=== PATIENT | female | born 1995 | race Caucasian/White ===

== ENCOUNTER 2021-02-19 05:39 | Inpatient (IN) | payer OTHER ==
[~2021-02-19] VITALS: Ht 162.6 cm; Wt 77.0 kg
[2021-02-19] MEDS ORDERED: MISOPROSTOL 25 MCG TABLET VG PRN (06:00)
[2021-02-19] MEDS ORDERED: OXYTOCIN 30U/ 0.9% NaCL 500ML 500 ML IV ONE (06:00)
[2021-02-19] MEDS ORDERED: OXYTOCIN 30U/ 0.9% NaCL 500ML 500 ML IV PRN (06:00)
[2021-02-19] MEDS ORDERED: FENTANYL PF 100 MCG/2ML IV PRN (06:00)
[2021-02-19] MEDS ORDERED: TERBUTALINE 1 MG/ML, 1ML SQ PRN (06:00)
[2021-02-19] MEDS ORDERED: METOCLOPRAMIDE 5 MG/ML, 2ML IVPush PRN (06:00)
[2021-02-19] MEDS ORDERED: D5%-LACTATED RINGERS 1,000 ML IV SCH (06:00)
[2021-02-19] MEDS ORDERED: ONDANSETRON 2MG/ML, 2ML IVPush PRN (06:00)
[2021-02-19] MEDS ORDERED: FENTANYL PF 100 MCG/2ML IVPush PRN (06:00)
[2021-02-19] MEDS ORDERED: TERBUTALINE 1 MG/ML, 1ML IVPush PRN (06:00)
[2021-02-19] MEDS ORDERED: SODIUM CITRATE/CITRIC ACID 30 ML UDC PO PRN (06:00)
[2021-02-19] MEDS ORDERED: AMPICILLIN 2 GM in SODIUM CHLORIDE 0.9% 100 ML IVPB STA (06:04)
[2021-02-19] MEDS: LACTATED RINGERS 1,000 ML IV SCH ×3 (06:10→17:43)
[2021-02-19] MEDS ORDERED: MISOPROSTOL 25 MCG TABLET ONE (06:13)
[2021-02-19] MEDS ORDERED: PLEASE ENTER ALLERGIES MC SCH ×2 (06:30)
[2021-02-19 07:20] LABS: BASOPHILS % (AUTO) 0 % (0-1); EOSINOPHILS % (AUTO) 2 % (1-7); LYMPHOCYTES % (AUTO) 23 % (22-44); MEAN CORPUSCULAR HEMOGLOBIN 31.4 pg (27.0-34.8); MEAN CORPUSCULAR HGB CONC 33.8 g/dL (32.4-35.8); MEAN PLATELET VOLUME 6.9 fL (7.4-10.4); MONOCYTES % (AUTO) 7 % (2-9); NEUTROPHILS % (AUTO) 68 % (42-75); PLATELET COUNT 300 x10^3/uL (130-400); RED BLOOD COUNT 3.47 x10^6/uL (3.82-5.3); RED CELL DISTRIBUTION WIDTH 13.6 % (9.6-15.2)
[2021-02-19] MEDS: AMPICILLIN 1 GM in SODIUM CHLORIDE 0.9% 100 ML IVPB SCH ×2 (14:00→19:08)
[2021-02-19] MEDS ORDERED: BUPIVACAINE 0.25% ONE (17:50)
[2021-02-19] MEDS ORDERED: FENTANYL/BUPIV./NS/PF 250 ML EPIDCONT ONE (17:50)
[2021-02-19] MEDS ORDERED: EPHEDRINE 50 MG/ML, 1ML IVPush PRN (18:00)
[2021-02-19] MEDS ORDERED: FENTANYL/BUPIV./NS/PF 250 ML EPIDCONT SCH (18:00)
[2021-02-19] MEDS ORDERED: LACTATED RINGERS 1,000 ML IVBOLUS PRN (18:00)
[2021-02-19] MEDS ORDERED: LACTATED RINGERS 1,000 ML IV SCH (18:00)
[2021-02-19] MEDS ORDERED: NALOXONE 0.4 MG/ML, 1ML IVPush PRN (18:00)
[2021-02-19] MEDS ORDERED: LIDOCAINE 1%, 20ML ONE (19:14)
[2021-02-19] MEDS ORDERED: MISOPROSTOL 200 MCG TABLET ONE (19:14)
[2021-02-20] MEDS ORDERED: NEWBORN KIT ONE (00:11)
[2021-02-20] MEDS: OXYTOCIN 30U/ 0.9% NaCL 500ML 500 ML IV SCH ×3 (00:30→20:30)
[2021-02-20] MEDS ORDERED: ACETAMINOPHEN 325 MG TABLET PO PRN (00:30)
[2021-02-20] MEDS ORDERED: DOCUSATE 100 MG CAPSULE PO PRN (00:30)
[2021-02-20] MEDS ORDERED: SIMETHICONE 80 MG CHEW TAB PO PRN (00:30)
[2021-02-20] MEDS ORDERED: ONDANSETRON 2MG/ML, 2ML IV PRN (00:30)
[2021-02-20] MEDS ORDERED: MISOPROSTOL 200 MCG TABLET PR PRN (00:30)
[2021-02-20] MEDS ORDERED: METHYLERGONOVINE 0.2 MG/ML IM PRN (00:30)
[2021-02-20] MEDS ORDERED: OXYcodone/APAP 5/325MG TABLET PO PRN ×2 (00:30)
[2021-02-20 02:20] VITALS: BP 103/65
[2021-02-20] MEDS: IBUPROFEN 800 MG TABLET PO PRN ×2 (02:41→20:56)
[2021-02-20 04:13] VITALS: BP 105/62
[2021-02-20 08:05] VITALS: BP 106/69
[2021-02-20 09:00] LABS: BASOPHILS % (AUTO) 0 % (0-1); EOSINOPHILS % (AUTO) 1 % (1-7); LYMPHOCYTES % (AUTO) 11 % (22-44); MEAN CORPUSCULAR HEMOGLOBIN 31.7 pg (27.0-34.8); MEAN CORPUSCULAR HGB CONC 34.5 g/dL (32.4-35.8); MEAN PLATELET VOLUME 6.9 fL (7.4-10.4); MONOCYTES % (AUTO) 8 % (2-9); NEUTROPHILS % (AUTO) 80 % (42-75); PLATELET COUNT 291 x10^3/uL (130-400); RED CELL DISTRIBUTION WIDTH 13.6 % (9.6-15.2)
[2021-02-20] MEDS: PRENATAL VIT/IRON/FA 1 EACH TABLET PO SCH (09:00)
[2021-02-20 11:36] VITALS: BP 103/68
[2021-02-20 16:45] VITALS: BP 114/75
[2021-02-20 19:10] VITALS: BP 115/72
[2021-02-21] MEDS: OXYTOCIN 30U/ 0.9% NaCL 500ML 500 ML IV SCH (06:30)
[2021-02-21 07:40] VITALS: BP 90/49
[2021-02-21] MEDS: PRENATAL VIT/IRON/FA 1 EACH TABLET PO SCH (07:52)
[2021-02-21] MEDS: IBUPROFEN 800 MG TABLET PO PRN ×2 (07:52→16:27)
[2021-02-21 19:52] VITALS: BP 109/71
== END 2021-02-21 21:20 | disposition home or self-care (01) | DRG 805 ==
LOC: LDIP 05:39 → 2NW 02-20 02:25
PROVIDERS: ADMIT Obstetrics & Gynecology; ATTEND Obstetrics & Gynecology
PROC: 3E0P7VZ Introduction of Hormone into Female Reproductive, Via Natural or Artificial Opening (ICD-10-PCS; 2021-02-19)
PROC: 10E0XZZ Delivery of Products of Conception, External Approach (ICD-10-PCS; principal; 2021-02-20)
PROC: 10907ZC Drainage of Amniotic Fluid, Therapeutic from Products of Conception, Via Natural or Artificial Opening (ICD-10-PCS; 2021-02-20)
PROC: 10H07YZ Insertion of Other Device into Products of Conception, Via Natural or Artificial Opening (ICD-10-PCS; 2021-02-20)
PROC: 3E0R3BZ Introduction of Anesthetic Agent into Spinal Canal, Percutaneous Approach (ICD-10-PCS; 2021-02-20)
PROC: 00HU33Z Insertion of Infusion Device into Spinal Canal, Percutaneous Approach (ICD-10-PCS; 2021-02-20)
DX: O98.52 Other viral diseases complicating childbirth (principal); U07.1 COVID-19; Z37.0 Single live birth; O99.824 Streptococcus B carrier state complicating childbirth; Z3A.39 39 weeks gestation of pregnancy; Z82.49 Family history of ischemic heart disease and other diseases of the circulatory system; Z83.3 Family history of diabetes mellitus; Z87.891 Personal history of nicotine dependence
CPT/HCPCS: 36415; 85025; 86592; 86850; 86900; 87635; G0378; J0290; J2405; J3010; J7120